=== PATIENT | female | born 1965 | race Caucasian/White ===

== ENCOUNTER 2019-10-24 13:41 | Emergency (ER) | payer MEDICAID ==
[~2019-10-24] VITALS: Ht 165.1 cm; Wt 75.0 kg
[2019-10-24 14:56] LABS: EOSINOPHILS % (AUTO) 0 % (1.0-6.0); HEMATOCRIT 34.8 % (36-46); HEMOGLOBIN 11.1 g/dL (12.0-16.0); LYMPHOCYTES # (AUTO) 0.8 K/uL (1.0-4.8); LYMPHOCYTES % (AUTO) 13.8 % (22.0-44.0); MEAN CORPUSCULAR HEMOGLOBIN 26.7 pg (26.0-34.0); MEAN CORPUSCULAR HGB CONC 31.9 G/dL (31.0-37.0); MEAN CORPUSCULAR VOLUME 84 fL (80-100); MONOCYTES # (AUTO) 0.5 K/uL (0.1-1.0); MONOCYTES % (AUTO) 9.2 % (2.0-9.0); NEUTROPHILS # (AUTO) 4.5 K/uL (1.8-7.7); PLATELET COUNT (AUTO) 300 K/uL (150-450); RED BLOOD CELL COUNT(AUTO) 4.15 MIL/uL (4.00-5.20); RED CELL DISTRIBUTION WIDTH 18.2 % (11.5-14.5)
[2019-10-24 15:19] LABS: CALCIUM, TOTAL 8.1 mg/dL (8.8-10.5); POTASSIUM 4.6 mmol/L (3.5-5.1)
[2019-10-24 15:34] LABS: BILIRUBIN,TOTAL 0.3 mg/dL (0.1-1.0); CREATININE 1.29 mg/dL (0.60-1.30); TOTAL PROTEIN, SERUM 6.9 g/dL (6.4-8.2)
[2019-10-24] MEDS ORDERED: INSULIN REGULAR, HUMAN 100 UNITS/ML IVP ONE (16:00)
[2019-10-24] MEDS ORDERED: BUMETANIDE 0.25 MG/ML 4 ML VIAL IVP ONE (16:15)
[2019-10-24 16:29] LABS: GLUCOSE,POINT OF CARE 369 MG/DL (70-110)
[2019-10-24 17:28] VITALS: BP 137/91
[2019-10-24 18:46] LABS: GLUCOSE,POINT OF CARE 302 MG/DL (70-110)
== END 2019-10-24 17:53 | disposition home or self-care (01) ==
LOC: EDBD 13:53 → EMS 13:53
DX: E11.65 Type 2 diabetes mellitus with hyperglycemia (principal); I50.9 Heart failure, unspecified; R60.0 Localized edema
CPT/HCPCS: 36415; 71045; 80053; 82962; 83880; 84484; 85025; 93005; 96374; 96375; 99285; J1815; J3490

== ENCOUNTER 2020-03-05 10:11 | Inpatient (IN) | payer MEDICAID ==
[~2020-03-05] VITALS: Ht 170.2 cm; Wt 66.9 kg
[~2020-03-05 10:11] MED LIST: ATOR20TA86 PO; CARV6 PO; INSLAN SQ; METO2.5T4 PO
[2020-03-05] MEDS ORDERED: FUROSEMIDE 40 MG/4 ML VIAL IVP ONE (12:15)
[2020-03-05 12:23] LABS: BASOPHILS % (AUTO) 1.1 % (0.0-2.0); EOSINOPHILS % (AUTO) 1.9 % (1.0-6.0); HEMOGLOBIN 11.8 g/dL (12.0-16.0); LYMPHOCYTES % (AUTO) 18.2 % (22.0-44.0); MEAN CORPUSCULAR HEMOGLOBIN 28.3 pg (26.0-34.0); MEAN CORPUSCULAR HGB CONC 31.7 G/dL (31.0-37.0); MEAN CORPUSCULAR VOLUME 89 fL (80-100); MONOCYTES # (AUTO) 0.7 K/uL (0.1-1.0); MONOCYTES % (AUTO) 11.9 % (2.0-9.0); NEUTROPHILS # (AUTO) 3.7 K/uL (1.8-7.7); NEUTROPHILS % (AUTO) 66.9 % (40.0-70.0); PLATELET COUNT (AUTO) 348 K/uL (150-450); RED BLOOD CELL COUNT(AUTO) 4.15 MIL/uL (4.00-5.20); RED CELL DISTRIBUTION WIDTH 17.9 % (11.5-14.5)
[2020-03-05 12:44] LABS: ANION GAP 9 mmol/L (8-16); CALCIUM, TOTAL 8.6 mg/dL (8.8-10.5); CARBON DIOXIDE 22 mmol/L (22-29); CHLORIDE 105 mmol/L (98-107); GLOMERULAR FILTR. RATE CALC 36 mL/min (>60); GLUCOSE,RANDOM 315 mg/dL (70-110); POTASSIUM 4.4 mmol/L (3.5-5.1); SODIUM SERUM 136 mmol/L (136-145); UREA NITROGEN, BLOOD 26 mg/dL (7-18)
[2020-03-05] MEDS ORDERED: PIPERACILLIN/TAZO 3.375 GM/D5W 50 ML IV ONE (12:45)
[2020-03-05 12:49] LABS: ALANINE AMINOTRANSFERASE 12 U/L (12-78); ALBUMIN 2.3 g/dL (3.4-5.0); ALKALINE PHOSPHATASE 132 U/L (46-116); ASPARTATE AMINOTRANSFERASE 28 U/L (15-37); B-TYPE NATRIURETIC PEPTIDE 2080 pg/mL (0-100); BILIRUBIN,TOTAL 0.7 mg/dL (0.1-1.0); TOTAL PROTEIN, SERUM 7.2 g/dL (6.4-8.2)
[2020-03-05] MEDS ORDERED: DEXTROSE 50%-WATER 25 GM/50 ML SYRINGE IVP PRN (13:15)
[2020-03-05] MEDS ORDERED: HydrALAZINE HCL 20 MG/ML VIAL IVP PRN (13:15)
[2020-03-05] MEDS ORDERED: 0.9% SODIUM CHLORIDE 10 ML SYRINGE IVP PRN (13:30)
[2020-03-05] MEDS ORDERED: MAGNESIUM HYDROXIDE SUSPENSION 30 ML UDCUP PO PRN (13:30)
[2020-03-05] MEDS ORDERED: ACETAMINOPHEN 325 MG TABLET PO PRN (13:30)
[2020-03-05] MEDS ORDERED: BISACODYL 10 MG RECTAL RECTAL SUPPOSITORY PR PRN (13:30)
[2020-03-05] MEDS ORDERED: ALBUTEROL SULFATE 2.5 MG/0.5 ML NEB SOLUTION NEB PRN (13:30)
[2020-03-05] MEDS ORDERED: IPRATROPIUM BROMIDE 0.5 MG/2.5 ML NEB SOLUTION NEB PRN (13:30)
[2020-03-05] MEDS ORDERED: DOCUSATE SODIUM 100 MG CAPSULE PO PRN (13:30)
[2020-03-05] MEDS ORDERED: ONDANSETRON HCL 4 MG/2 ML VIAL IVP PRN (13:30)
[2020-03-05] MEDS ORDERED: VANCOMYCIN HCL 1 GM/D5% WATER 200 ML IV ONE (14:00)
[2020-03-05] MEDS: LACTOBACILLUS ACIDOPHILUS/BULGARICUS TABLET PO SCH ×2 (15:05→21:00)
[2020-03-05] MEDS: PANTOPRAZOLE SODIUM 40 MG DR TABLET PO SCH (15:05)
[2020-03-05 17:35] LABS: APPEARANCE,URINE CLEAR (CLEAR); BILIRUBIN,URINE NEGATIVE (NEGATIVE); GLUCOSE, URINE (UA) 250 mg/dL (NEGATIVE); KETONES,URINE NEGATIVE (NEGATIVE); LEUKOCYTE ESTERASE ,URINE NEGATIVE (NEGATIVE); NITRATE,URINE NEGATIVE (NEGATIVE); OCCULT BLOOD,URINE SMALL (NEGATIVE); PROTEIN,URINE SEE CONFIRM (NEGATIVE); UROBILINOGEN,URINE 0.2 mg/dL (<=1.0)
[2020-03-05 17:40] LABS: SULFOSALICYLIC ACID,URINE 4+ (Negative)
[2020-03-05 17:41] LABS: BACTERIA,URINE None Seen /HPF (None Seen); RBC,URINE 0-2 /HPF (0-2); SQUAMOUS EPITHELIAL CELL,UR Few /LPF (None Seen); WBC,URINE 0-2 /HPF (0-5); YEAST,URINE Rare /HPF (None Seen)
[2020-03-05] MEDS: CefTRIAXone 1 GM/DEXTROSE 50 ML IV SCH (18:09)
[2020-03-05] MEDS: INSULIN LISPRO 100 UNITS/ML SQ PRN ×2 (18:11→21:25)
[2020-03-05 20:45] VITALS: BP 146/110
[2020-03-05] MEDS: FUROSEMIDE 40 MG/4 ML VIAL IVP SCH (20:59)
[2020-03-05] MEDS: VANCOMYCIN HCL 750 MG in DEXTROSE 5%-WATER 250 ML IV SCH (20:59)
[2020-03-05] MEDS: HEPARIN SODIUM,PORCINE 5,000 UNITS/ML VIAL SQ SCH (21:00)
[2020-03-05] MEDS ORDERED: RIFAB150 PO (23:39)
[2020-03-05] MEDS ORDERED: PYRI-12 PO (23:40)
[2020-03-05] MEDS ORDERED: ISON100L PO (23:40)
[2020-03-05] MEDS ORDERED: ISON100 PO (23:44)
[2020-03-06] VITALS (7 sets, daily range): BP systolic 116–149; BP diastolic 68–94
[2020-03-06 03:44] LABS: GLUCOMETER DEV NAME(LOC) 5S.2B; GLUCOSE,POINT OF CARE 263 MG/DL (70-110)
[2020-03-06 06:55] LABS: EOSINOPHILS % (AUTO) 1.9 % (1.0-6.0); HEMATOCRIT 36.2 % (36-46); HEMOGLOBIN 11.5 g/dL (12.0-16.0); LYMPHOCYTES # (AUTO) 0.8 K/uL (1.0-4.8); LYMPHOCYTES % (AUTO) 13.6 % (22.0-44.0); MEAN CORPUSCULAR HEMOGLOBIN 28.3 pg (26.0-34.0); MEAN CORPUSCULAR HGB CONC 31.8 G/dL (31.0-37.0); MEAN CORPUSCULAR VOLUME 89 fL (80-100); MONOCYTES # (AUTO) 0.8 K/uL (0.1-1.0); MONOCYTES % (AUTO) 12.9 % (2.0-9.0); NEUTROPHILS # (AUTO) 4.1 K/uL (1.8-7.7); NEUTROPHILS % (AUTO) 70.6 % (40.0-70.0); PLATELET COUNT (AUTO) 339 K/uL (150-450); RED BLOOD CELL COUNT(AUTO) 4.07 MIL/uL (4.00-5.20); RED CELL DISTRIBUTION WIDTH 17.3 % (11.5-14.5)
[2020-03-06 07:20] LABS: HEMOGLOBIN A1C 8.8 % (3.8-5.6)
[2020-03-06 07:24] LABS: ALBUMIN 2.3 g/dL (3.4-5.0); BILIRUBIN,TOTAL 0.6 mg/dL (0.1-1.0); CHOL/HDL RATIO 3.4 (3.9-5.7); CREATININE 1.32 mg/dL (0.60-1.30); FREE T4 (FREE THYROXINE) 1.34 ng/dL (0.76-1.46); POTASSIUM 4.2 mmol/L (3.5-5.1); THYROID STIMULATING HORMONE 4.8 uIU/mL (0.36-3.74)
[2020-03-06 07:46] LABS: GLUCOMETER DEV NAME(LOC) 5S.2B; GLUCOSE,POINT OF CARE 65 MG/DL (70-110)
[2020-03-06] MEDS: VANCOMYCIN HCL 750 MG in DEXTROSE 5%-WATER 250 ML IV SCH ×3 (08:01→20:36)
[2020-03-06] MEDS: ASPIRIN 81 MG CHEWABLE TABLET PO SCH (08:01)
[2020-03-06] MEDS: RIFABUTIN 150 MG CAPSULE PO SCH (08:01)
[2020-03-06] MEDS: PANTOPRAZOLE SODIUM 40 MG DR TABLET PO SCH (08:02)
[2020-03-06] MEDS: FUROSEMIDE 40 MG/4 ML VIAL IVP SCH ×2 (08:02→20:36)
[2020-03-06] MEDS: HEPARIN SODIUM,PORCINE 5,000 UNITS/ML VIAL SQ SCH ×2 (08:02→20:36)
[2020-03-06] MEDS: PYRIDOXINE HCL 50 MG TABLET PO SCH (08:03)
[2020-03-06] MEDS: ISONIAZID 100 MG TABLET PO SCH (08:03)
[2020-03-06] MEDS: LACTOBACILLUS ACIDOPHILUS/BULGARICUS TABLET PO SCH ×2 (08:03→21:28)
[2020-03-06] MEDS ORDERED: FUROSEMIDE 20 MG/2 ML VIAL IVP SCH (09:00)
[2020-03-06] MEDS: INSULIN LISPRO 100 UNITS/ML SQ PRN ×3 (11:10→21:45)
[2020-03-06] MEDS: CefTRIAXone 1 GM/DEXTROSE 50 ML IV SCH (17:37)
[2020-03-06 18:44] LABS: GLUCOMETER DEV NAME(LOC) 5S.1; GLUCOSE,POINT OF CARE 167 MG/DL (70-110)
[2020-03-07 00:33] LABS: GLUCOMETER DEV NAME(LOC) 5S.2B; GLUCOSE,POINT OF CARE 250 MG/DL (70-110)
[2020-03-07 03:58] VITALS: BP 121/70
[2020-03-07 04:48] LABS: BASOPHILS % (AUTO) 1.3 % (0.0-2.0); EOSINOPHILS % (AUTO) 3.9 % (1.0-6.0); HEMATOCRIT 31.9 % (36-46); HEMOGLOBIN 10.5 g/dL (12.0-16.0); LYMPHOCYTES # (AUTO) 0.8 K/uL (1.0-4.8); LYMPHOCYTES % (AUTO) 17.8 % (22.0-44.0); MEAN CORPUSCULAR HEMOGLOBIN 28.9 pg (26.0-34.0); MEAN CORPUSCULAR HGB CONC 32.9 G/dL (31.0-37.0); MEAN CORPUSCULAR VOLUME 88 fL (80-100); MONOCYTES # (AUTO) 0.7 K/uL (0.1-1.0); MONOCYTES % (AUTO) 16.3 % (2.0-9.0); NEUTROPHILS # (AUTO) 2.7 K/uL (1.8-7.7); NEUTROPHILS % (AUTO) 60.7 % (40.0-70.0); PLATELET COUNT (AUTO) 330 K/uL (150-450); RED BLOOD CELL COUNT(AUTO) 3.63 MIL/uL (4.00-5.20); RED CELL DISTRIBUTION WIDTH 17.6 % (11.5-14.5)
[2020-03-07 05:54] LABS: CALCIUM, TOTAL 8.3 mg/dL (8.8-10.5); CREATININE 1.39 mg/dL (0.60-1.30); POTASSIUM 4.2 mmol/L (3.5-5.1); VANCOMYCIN,RANDOM 23.3 mcg/mL (25.0-50.0)
[2020-03-07] MEDS: LACTOBACILLUS ACIDOPHILUS/BULGARICUS TABLET PO SCH ×2 (07:37→20:30)
[2020-03-07] MEDS: VANCOMYCIN HCL 750 MG in DEXTROSE 5%-WATER 250 ML IV SCH ×2 (07:37→20:30)
[2020-03-07] MEDS: ISONIAZID 100 MG TABLET PO SCH (07:38)
[2020-03-07] MEDS: PYRIDOXINE HCL 50 MG TABLET PO SCH (07:38)
[2020-03-07] MEDS: PANTOPRAZOLE SODIUM 40 MG DR TABLET PO SCH (07:38)
[2020-03-07] MEDS: RIFABUTIN 150 MG CAPSULE PO SCH (07:38)
[2020-03-07] MEDS: HEPARIN SODIUM,PORCINE 5,000 UNITS/ML VIAL SQ SCH ×2 (07:39→20:30)
[2020-03-07] MEDS: FUROSEMIDE 40 MG/4 ML VIAL IVP SCH (07:39)
[2020-03-07] MEDS: ASPIRIN 81 MG CHEWABLE TABLET PO SCH (07:39)
[2020-03-07 07:53] VITALS: BP 140/73
[2020-03-07 08:46] LABS: GLUCOMETER DEV NAME(LOC) 5N.3; GLUCOSE,POINT OF CARE 71 MG/DL (70-110)
[2020-03-07 11:05] VITALS: BP 109/73
[2020-03-07] MEDS ORDERED: METOPROLOL SUCCINATE 25 MG ER TABLET PO ONE (11:15)
[2020-03-07 11:35] LABS: GLUCOMETER DEV NAME(LOC) 5S.2B; GLUCOSE,POINT OF CARE 110 MG/DL (70-110)
[2020-03-07] MEDS: LISINOPRIL 5 MG TABLET PO SCH (11:36)
[2020-03-07] MEDS: INSULIN LISPRO 100 UNITS/ML SQ PRN ×3 (11:54→20:31)
[2020-03-07 15:11] VITALS: BP 108/70
[2020-03-07] MEDS: CefTRIAXone 1 GM/DEXTROSE 50 ML IV SCH (17:51)
[2020-03-07 18:04] LABS: GLUCOMETER DEV NAME(LOC) 5N.1; GLUCOSE,POINT OF CARE 192 MG/DL (70-110)
[2020-03-07 20:10] VITALS: BP 96/62
[2020-03-07 20:24] LABS: GLUCOMETER DEV NAME(LOC) 5S.2B; GLUCOSE,POINT OF CARE 197 MG/DL (70-110)
[2020-03-07 20:36] LABS: GLUCOMETER DEV NAME(LOC) 5N.3; GLUCOSE,POINT OF CARE 281 MG/DL (70-110)
[2020-03-08 00:12] VITALS: BP 103/60
[2020-03-08 04:30] VITALS: BP 103/66
[2020-03-08 06:38] LABS: GLUCOMETER DEV NAME(LOC) 5N.3; GLUCOSE,POINT OF CARE 133 MG/DL (70-110)
[2020-03-08 07:13] LABS: CALCIUM, TOTAL 8.2 mg/dL (8.8-10.5); CREATININE 1.52 mg/dL (0.60-1.30); POTASSIUM 4.1 mmol/L (3.5-5.1)
[2020-03-08 07:55] VITALS: BP 114/72
[2020-03-08] MEDS: ISONIAZID 100 MG TABLET PO SCH (08:11)
[2020-03-08] MEDS: ASPIRIN 81 MG CHEWABLE TABLET PO SCH (08:11)
[2020-03-08] MEDS: RIFABUTIN 150 MG CAPSULE PO SCH (08:11)
[2020-03-08] MEDS: HEPARIN SODIUM,PORCINE 5,000 UNITS/ML VIAL SQ SCH ×2 (08:12→20:07)
[2020-03-08] MEDS: FUROSEMIDE 40 MG TABLET PO SCH (08:12)
[2020-03-08] MEDS: PYRIDOXINE HCL 50 MG TABLET PO SCH (08:12)
[2020-03-08] MEDS: LACTOBACILLUS ACIDOPHILUS/BULGARICUS TABLET PO SCH ×2 (08:12→20:07)
[2020-03-08] MEDS: LISINOPRIL 5 MG TABLET PO SCH (08:13)
[2020-03-08] MEDS: PANTOPRAZOLE SODIUM 40 MG DR TABLET PO SCH (08:13)
[2020-03-08] MEDS: VANCOMYCIN HCL 750 MG in DEXTROSE 5%-WATER 250 ML IV SCH ×2 (08:13→19:48)
[2020-03-08] MEDS: INSULIN LISPRO 100 UNITS/ML SQ PRN ×3 (11:32→20:08)
[2020-03-08 11:50] VITALS: BP 106/73
[2020-03-08 12:44] LABS: GLUCOMETER DEV NAME(LOC) 5N.3; GLUCOSE,POINT OF CARE 174 MG/DL (70-110)
[2020-03-08 15:43] VITALS: BP 109/71
[2020-03-08] MEDS: CefTRIAXone 1 GM/DEXTROSE 50 ML IV SCH (17:31)
[2020-03-08 19:25] VITALS: BP 113/67
[2020-03-08 21:56] LABS: GLUCOMETER DEV NAME(LOC) 5S.2B; GLUCOSE,POINT OF CARE 177 MG/DL (70-110)
[2020-03-09] VITALS: BP 106/63
[2020-03-09 00:40] LABS: GLUCOMETER DEV NAME(LOC) 5N.1; GLUCOSE,POINT OF CARE 211 MG/DL (70-110)
[2020-03-09 04:12] VITALS: BP 112/73
[2020-03-09 07:04] LABS: CALCIUM, TOTAL 8.3 mg/dL (8.8-10.5); CREATININE 1.42 mg/dL (0.60-1.30); POTASSIUM 4.3 mmol/L (3.5-5.1)
[2020-03-09 07:05] LABS: GLUCOMETER DEV NAME(LOC) 5S.2B; GLUCOSE,POINT OF CARE 114 MG/DL (70-110)
[2020-03-09] MEDS: FUROSEMIDE 40 MG TABLET PO SCH (07:53)
[2020-03-09] MEDS: ISONIAZID 100 MG TABLET PO SCH (07:53)
[2020-03-09] MEDS: HEPARIN SODIUM,PORCINE 5,000 UNITS/ML VIAL SQ SCH (07:53)
[2020-03-09] MEDS: RIFABUTIN 150 MG CAPSULE PO SCH (07:53)
[2020-03-09] MEDS: LISINOPRIL 5 MG TABLET PO SCH (07:54)
[2020-03-09] MEDS: LACTOBACILLUS ACIDOPHILUS/BULGARICUS TABLET PO SCH (07:54)
[2020-03-09] MEDS: VANCOMYCIN HCL 750 MG in DEXTROSE 5%-WATER 250 ML IV SCH (07:54)
[2020-03-09] MEDS: PYRIDOXINE HCL 50 MG TABLET PO SCH (07:54)
[2020-03-09] MEDS: PANTOPRAZOLE SODIUM 40 MG DR TABLET PO SCH (07:54)
[2020-03-09] MEDS: ASPIRIN 81 MG CHEWABLE TABLET PO SCH (07:54)
[2020-03-09 08:00] VITALS: BP 116/73
[2020-03-09 12:00] VITALS: BP 126/81
[2020-03-09] MEDS ORDERED: LISI-622 PO (12:38)
[2020-03-09] MEDS ORDERED: ASPI-728 PO (12:38)
[2020-03-09] MEDS ORDERED: CEPH-582 PO (12:38)
[2020-03-09] MEDS: INSULIN LISPRO 100 UNITS/ML SQ PRN (13:14)
[2020-03-09 16:22] VITALS: BP 116/65
[2020-03-09 20:01] LABS: GLUCOMETER DEV NAME(LOC) 5S.2B; GLUCOSE,POINT OF CARE 201 MG/DL (70-110)
== END 2020-03-09 16:50 | disposition home or self-care (01) | DRG 194 ==
LOC: EMS 10:14 → 5N 13:21 → 5S 03-08 17:15
PROVIDERS: ADMIT Internal Medicine; ATTEND Internal Medicine
PROC: 05HY33Z Insertion of Infusion Device into Upper Vein, Percutaneous Approach (ICD-10-PCS; principal; 2020-03-06)
PROC: B54NZZ3 Ultrasonography of Left Upper Extremity Veins, Intravascular (ICD-10-PCS; 2020-03-06)
DX: I13.0 Hypertensive heart and chronic kidney disease with heart failure and stage 1 through stage 4 chronic kidney disease, or unspecified chronic kidney disease (principal); I50.23 Acute on chronic systolic (congestive) heart failure; R06.03 Acute respiratory distress; L03.116 Cellulitis of left lower limb; N17.9 Acute kidney failure, unspecified; E11.22 Type 2 diabetes mellitus with diabetic chronic kidney disease; N18.9 Chronic kidney disease, unspecified; E11.65 Type 2 diabetes mellitus with hyperglycemia; E11.51 Type 2 diabetes mellitus with diabetic peripheral angiopathy without gangrene; I42.0 Dilated cardiomyopathy; M86.9 Osteomyelitis, unspecified; E11.69 Type 2 diabetes mellitus with other specified complication; Z20.828 Contact with and (suspected) exposure to other viral communicable diseases
CPT/HCPCS: 36245; 36569; 76937; 82948; 83036; 84145; 84439; 84443; 87070; 87205; 87426; 93005; 93306; 93925; 93970; 97110; 97116; 97162; 97530; J0696; J1644; J1815; J1940; J3370; J7060; 36415-L1; 36415-TC; 71045-TC; 80061-TC; 80202-TC

== ENCOUNTER 2020-04-09 18:16 | Inpatient (IN) | payer MEDICAID ==
[~2020-04-09] VITALS: Ht 152.4 cm; Wt 73.5 kg
[~2020-04-09 18:16] MED LIST changes: +ASPI-728 PO; +CEPH-582 PO; +FURO20 PO; +ISON100 PO; +LISI-622 PO; +METO2.5T2 PO; -METO2.5T4 PO; +PYRI-12 PO; +RIFAB150 PO
[2020-04-09] MEDS ORDERED: FUROSEMIDE 40 MG/4 ML VIAL IVP ONE (18:45)
[2020-04-09] MEDS ORDERED: NITROGLYCERIN 2% (1 GM=INCH) PACKET TP ONE (18:45)
[2020-04-09 19:00] LABS: BASOPHILS % (AUTO) 1.8 % (0.0-2.0); EOSINOPHILS % (AUTO) 1.3 % (1.0-6.0); HEMATOCRIT 40.2 % (36-46); HEMOGLOBIN 12.6 g/dL (12.0-16.0); LYMPHOCYTES % (AUTO) 22.8 % (22.0-44.0); MEAN CORPUSCULAR HEMOGLOBIN 26.1 pg (26.0-34.0); MEAN CORPUSCULAR HGB CONC 31.3 G/dL (31.0-37.0); MEAN CORPUSCULAR VOLUME 84 fL (80-100); MONOCYTES # (AUTO) 0.9 K/uL (0.1-1.0); MONOCYTES % (AUTO) 10.7 % (2.0-9.0); NEUTROPHILS # (AUTO) 5.6 K/uL (1.8-7.7); NEUTROPHILS % (AUTO) 63.4 % (40.0-70.0); PLATELET COUNT (AUTO) 415 K/uL (150-450); RED BLOOD CELL COUNT(AUTO) 4.82 MIL/uL (4.00-5.20); RED CELL DISTRIBUTION WIDTH 17.3 % (11.5-14.5)
[2020-04-09 19:14] LABS: INR 1.1 (0.9-1.1); PROTHROMBIN TIME 11.2 SEC (9.4-11.6)
[2020-04-09 19:18] LABS: CALCIUM, TOTAL 8.6 mg/dL (8.8-10.5); CREATININE 1.28 mg/dL (0.60-1.30); POTASSIUM 3.9 mmol/L (3.5-5.1)
[2020-04-09 19:43] LABS: ALBUMIN 2.4 g/dL (3.4-5.0); BILIRUBIN,TOTAL 0.9 mg/dL (0.1-1.0); TOTAL PROTEIN, SERUM 7.3 g/dL (6.4-8.2)
[2020-04-09 19:44] LABS: SITE, BLOOD GAS LFT RADIAL
[2020-04-09 19:45] LABS: ABG BASE EXCESS -2.2 mmol/L (-2.0-3.0); ABG HCO3 22.6 mmol/L (22.0-26.0); ABG PCO2 44 mmHg (35-45); ABG PH 7.344 (7.35-7.450); ABG TOTAL HEMOGLOBIN 12.4 G/dL (12.0-18.0); PO2, ARTERIAL BG 249.3 mmHg (84.0-92.0); SOURCE, BLOOD GAS ARTERIAL; TEMPERATURE, FAHRENHEIT, BG 97.8 FAHREN (96.0-98.6)
[2020-04-09 19:46] LABS: ABG A-A DIFF O2 420.5 mmHg (10-20.0); ABG CARBOXYHEMOGLOBIN 1.1 % (0.0-1.5); ABG METHEMOGLOBIN 0.3 % (0.0-1.5); ABG OXYGEN CONTENT 17.7 mL/dL (15.0-23.0); ABG OXYGEN SATURATION 99.6 % (95.0-98.0); ABG OXYHEMOGLOBIN 98.2 % (94.0-100.0); O2 DEVICE,BLOOD GAS NON REBREATHER (ROOM AIR)
[2020-04-09 19:57] LABS: COVID AG,FIA SOURCE NASOPHARYNGEAL
[2020-04-09] MEDS ORDERED: 0.9% SODIUM CHLORIDE 10 ML SYRINGE IVP PRN (20:30)
[2020-04-09] MEDS ORDERED: ONDANSETRON HCL 4 MG/2 ML VIAL IVP PRN (20:30)
[2020-04-09] MEDS ORDERED: ACETAMINOPHEN 325 MG TABLET PO PRN ×2 (20:30→20:45)
[2020-04-09] MEDS ORDERED: DEXTROSE 50%-WATER 25 GM/50 ML SYRINGE IVP PRN (20:45)
[2020-04-09] MEDS: ATORVASTATIN CALCIUM 20 MG TABLET PO SCH (21:39)
[2020-04-09] MEDS: DOCUSATE SODIUM 100 MG CAPSULE PO SCH (21:39)
[2020-04-09] MEDS: CARVEDILOL 6.25 MG TABLET PO SCH (21:39)
[2020-04-09 21:40] VITALS: BP 151/101
[2020-04-09] MEDS: INSULIN GLARGINE,HUM.REC.ANLOG 100 UNITS/ML SQ SCH (21:41)
[2020-04-09] MEDS: INSULIN LISPRO 100 UNITS/ML SQ PRN (21:42)
[2020-04-09 23:02] LABS: GLUCOMETER DEV NAME(LOC) 5S.2B; GLUCOSE,POINT OF CARE 360 MG/DL (70-110)
[2020-04-09] MEDS: HEPARIN SODIUM,PORCINE 5,000 UNITS/ML VIAL SQ SCH (23:43)
[2020-04-10 00:38] VITALS: BP_SYST 106; BP_SYST 136; BP_DIAS 60; BP_DIAS 84
[2020-04-10 04:20] VITALS: BP 107/62
[2020-04-10 06:50] LABS: BASOPHILS % (AUTO) 1.5 % (0.0-2.0); EOSINOPHILS % (AUTO) 0.9 % (1.0-6.0); HEMOGLOBIN 11.1 g/dL (12.0-16.0); LYMPHOCYTES # (AUTO) 0.5 K/uL (1.0-4.8); MEAN CORPUSCULAR HEMOGLOBIN 25.5 pg (26.0-34.0); MEAN CORPUSCULAR HGB CONC 30.9 G/dL (31.0-37.0); MEAN CORPUSCULAR VOLUME 83 fL (80-100); MONOCYTES # (AUTO) 0.7 K/uL (0.1-1.0); NEUTROPHILS # (AUTO) 5.4 K/uL (1.8-7.7); NEUTROPHILS % (AUTO) 80.6 % (40.0-70.0); PLATELET COUNT (AUTO) 344 K/uL (150-450); RED BLOOD CELL COUNT(AUTO) 4.36 MIL/uL (4.00-5.20); RED CELL DISTRIBUTION WIDTH 17.2 % (11.5-14.5)
[2020-04-10] MEDS ORDERED: PNEUMOCOCCAL VACCINE POLYVALENT 0.5 ML VIAL [PPSV23] IM ONE (07:00)
[2020-04-10] MEDS ORDERED: INFLUENZA VIRUS VACCINE QVS 2020-21 (6MO+)/PF 60 MCG/0.5 ML SYRINGE IM ONE (07:00)
[2020-04-10 07:02] VITALS: BP 112/73
[2020-04-10 07:42] LABS: ALBUMIN 1.9 g/dL (3.4-5.0); CALCIUM, TOTAL 8.4 mg/dL (8.8-10.5); CREATININE 1.28 mg/dL (0.60-1.30); POTASSIUM 4.2 mmol/L (3.5-5.1)
[2020-04-10] MEDS: CARVEDILOL 6.25 MG TABLET PO SCH ×2 (07:49→20:37)
[2020-04-10] MEDS: FAMOTIDINE 20 MG TABLET PO SCH (07:49)
[2020-04-10] MEDS: LISINOPRIL 10 MG TABLET PO SCH (07:49)
[2020-04-10] MEDS: RIFAMPIN 300 MG CAPSULE PO SCH (07:49)
[2020-04-10] MEDS: PYRIDOXINE HCL 50 MG TABLET PO SCH (07:49)
[2020-04-10] MEDS: ASPIRIN 81 MG CHEWABLE TABLET PO SCH (07:49)
[2020-04-10] MEDS: ISONIAZID 300 MG TABLET PO SCH (07:49)
[2020-04-10] MEDS: DOCUSATE SODIUM 100 MG CAPSULE PO SCH ×2 (07:50→20:37)
[2020-04-10] MEDS: HEPARIN SODIUM,PORCINE 5,000 UNITS/ML VIAL SQ SCH ×2 (07:50→15:22)
[2020-04-10] MEDS: FUROSEMIDE 40 MG/4 ML VIAL IVP SCH (07:50)
[2020-04-10 07:55] LABS: BILIRUBIN,TOTAL 0.6 mg/dL (0.1-1.0); TOTAL PROTEIN, SERUM 5.9 g/dL (6.4-8.2)
[2020-04-10 11:00] VITALS: BP 128/76
[2020-04-10 12:32] LABS: GLUCOMETER DEV NAME(LOC) 5N.3; GLUCOSE,POINT OF CARE 135 MG/DL (70-110)
[2020-04-10 15:31] VITALS: BP 114/74
[2020-04-10] MEDS: INSULIN LISPRO 100 UNITS/ML SQ PRN ×2 (17:22→20:41)
[2020-04-10 20:00] VITALS: BP 122/72
[2020-04-10] MEDS: ATORVASTATIN CALCIUM 20 MG TABLET PO SCH (20:37)
[2020-04-10] MEDS: INSULIN GLARGINE,HUM.REC.ANLOG 100 UNITS/ML SQ SCH (20:41)
[2020-04-11] VITALS (8 sets, daily range): BP systolic 109–144; BP diastolic 43–87
[2020-04-11] MEDS: HEPARIN SODIUM,PORCINE 5,000 UNITS/ML VIAL SQ SCH ×3 (00:50→17:10)
[2020-04-11 03:14] LABS: GLUCOMETER DEV NAME(LOC) 5S.1; GLUCOSE,POINT OF CARE 131 MG/DL (70-110)
[2020-04-11 03:14] LABS: GLUCOMETER DEV NAME(LOC) 5S.1; GLUCOSE,POINT OF CARE 183 MG/DL (70-110)
[2020-04-11 03:14] LABS: GLUCOMETER DEV NAME(LOC) 5S.2B; GLUCOSE,POINT OF CARE 170 MG/DL (70-110)
[2020-04-11 08:36] LABS: GLUCOMETER DEV NAME(LOC) 5S.2B; GLUCOSE,POINT OF CARE 71 MG/DL (70-110)
[2020-04-11] MEDS: FUROSEMIDE 40 MG/4 ML VIAL IVP SCH ×2 (08:53→20:19)
[2020-04-11] MEDS: LISINOPRIL 10 MG TABLET PO SCH (08:54)
[2020-04-11] MEDS: CARVEDILOL 6.25 MG TABLET PO SCH ×2 (08:54→20:20)
[2020-04-11] MEDS: PYRIDOXINE HCL 50 MG TABLET PO SCH (08:54)
[2020-04-11] MEDS: FAMOTIDINE 20 MG TABLET PO SCH (08:54)
[2020-04-11] MEDS: DOCUSATE SODIUM 100 MG CAPSULE PO SCH ×2 (08:54→20:21)
[2020-04-11] MEDS: ASPIRIN 81 MG CHEWABLE TABLET PO SCH (08:54)
[2020-04-11] MEDS: ISONIAZID 300 MG TABLET PO SCH (08:54)
[2020-04-11] MEDS: RIFAMPIN 300 MG CAPSULE PO SCH (08:55)
[2020-04-11] MEDS: INSULIN LISPRO 100 UNITS/ML SQ PRN ×3 (11:21→20:25)
[2020-04-11 12:23] LABS: GLUCOMETER DEV NAME(LOC) 5S.1; GLUCOSE,POINT OF CARE 128 MG/DL (70-110)
[2020-04-11 17:16] LABS: GLUCOMETER DEV NAME(LOC) 5S.2B; GLUCOSE,POINT OF CARE 157 MG/DL (70-110)
[2020-04-11] MEDS: ATORVASTATIN CALCIUM 20 MG TABLET PO SCH (20:20)
[2020-04-11] MEDS: INSULIN GLARGINE,HUM.REC.ANLOG 100 UNITS/ML SQ SCH (20:24)
[2020-04-12] MEDS: HEPARIN SODIUM,PORCINE 5,000 UNITS/ML VIAL SQ SCH ×4 (00:21→23:53)
[2020-04-12 00:52] LABS: GLUCOMETER DEV NAME(LOC) 5S.2B; GLUCOSE,POINT OF CARE 171 MG/DL (70-110)
[2020-04-12 04:00] VITALS: BP 113/73
[2020-04-12 06:13] LABS: BASOPHILS % (AUTO) 1.7 % (0.0-2.0); EOSINOPHILS % (AUTO) 4.8 % (1.0-6.0); HEMATOCRIT 31.6 % (36-46); HEMOGLOBIN 10.3 g/dL (12.0-16.0); LYMPHOCYTES # (AUTO) 0.6 K/uL (1.0-4.8); LYMPHOCYTES % (AUTO) 10.3 % (22.0-44.0); MEAN CORPUSCULAR HEMOGLOBIN 26.7 pg (26.0-34.0); MEAN CORPUSCULAR HGB CONC 32.6 G/dL (31.0-37.0); MEAN CORPUSCULAR VOLUME 82 fL (80-100); MONOCYTES # (AUTO) 0.9 K/uL (0.1-1.0); MONOCYTES % (AUTO) 15.1 % (2.0-9.0); NEUTROPHILS # (AUTO) 3.9 K/uL (1.8-7.7); NEUTROPHILS % (AUTO) 68.1 % (40.0-70.0); PLATELET COUNT (AUTO) 303 K/uL (150-450); RED BLOOD CELL COUNT(AUTO) 3.86 MIL/uL (4.00-5.20); RED CELL DISTRIBUTION WIDTH 16.7 % (11.5-14.5)
[2020-04-12 06:32] LABS: CALCIUM, TOTAL 8.4 mg/dL (8.8-10.5); CREATININE 1.44 mg/dL (0.60-1.30); POTASSIUM 4.4 mmol/L (3.5-5.1)
[2020-04-12 06:41] LABS: GLUCOMETER DEV NAME(LOC) 5S.1; GLUCOSE,POINT OF CARE 67 MG/DL (70-110)
[2020-04-12 07:50] VITALS: BP 129/90
[2020-04-12 08:01] LABS: GLUCOMETER DEV NAME(LOC) 5S.1; GLUCOSE,POINT OF CARE 95 MG/DL (70-110)
[2020-04-12] MEDS: CARVEDILOL 6.25 MG TABLET PO SCH ×2 (08:21→20:34)
[2020-04-12] MEDS: LISINOPRIL 10 MG TABLET PO SCH (08:21)
[2020-04-12] MEDS: DOCUSATE SODIUM 100 MG CAPSULE PO SCH ×3 (08:21→20:45)
[2020-04-12] MEDS: RIFAMPIN 300 MG CAPSULE PO SCH (08:21)
[2020-04-12] MEDS: PYRIDOXINE HCL 50 MG TABLET PO SCH (08:21)
[2020-04-12] MEDS: ISONIAZID 300 MG TABLET PO SCH (08:21)
[2020-04-12] MEDS: FAMOTIDINE 20 MG TABLET PO SCH (08:21)
[2020-04-12] MEDS: ASPIRIN 81 MG CHEWABLE TABLET PO SCH (08:21)
[2020-04-12] MEDS: FUROSEMIDE 40 MG/4 ML VIAL IVP SCH ×2 (08:25→20:35)
[2020-04-12 11:38] VITALS: BP 122/95
[2020-04-12 12:32] LABS: GLUCOMETER DEV NAME(LOC) 5S.1; GLUCOSE,POINT OF CARE 124 MG/DL (70-110)
[2020-04-12 15:35] VITALS: BP 113/66
[2020-04-12] MEDS ORDERED: FUROSEMIDE 40 MG/4 ML VIAL IVP ONE (15:45)
[2020-04-12 17:55] LABS: GLUCOMETER DEV NAME(LOC) 5S.2B; GLUCOSE,POINT OF CARE 152 MG/DL (70-110)
[2020-04-12 19:35] VITALS: BP 113/73
[2020-04-12] MEDS: ATORVASTATIN CALCIUM 20 MG TABLET PO SCH (20:34)
[2020-04-12] MEDS: INSULIN GLARGINE,HUM.REC.ANLOG 100 UNITS/ML SQ SCH (20:39)
[2020-04-12 22:19] LABS: GLUCOMETER DEV NAME(LOC) 5S.2B; GLUCOSE,POINT OF CARE 206 MG/DL (70-110)
[2020-04-13 00:28] VITALS: BP 111/72
[2020-04-13 04:57] VITALS: BP 108/59
[2020-04-13 06:43] LABS: GLUCOMETER DEV NAME(LOC) 5S.2B; GLUCOSE,POINT OF CARE 133 MG/DL (70-110)
[2020-04-13 07:06] VITALS: BP 113/78
[2020-04-13] MEDS: FUROSEMIDE 40 MG/4 ML VIAL IVP SCH (08:55)
[2020-04-13] MEDS: ASPIRIN 81 MG CHEWABLE TABLET PO SCH (08:55)
[2020-04-13] MEDS: HEPARIN SODIUM,PORCINE 5,000 UNITS/ML VIAL SQ SCH (08:55)
[2020-04-13] MEDS: LISINOPRIL 10 MG TABLET PO SCH (08:55)
[2020-04-13] MEDS: PYRIDOXINE HCL 50 MG TABLET PO SCH (08:56)
[2020-04-13] MEDS: DOCUSATE SODIUM 100 MG CAPSULE PO SCH ×3 (08:56→09:12)
[2020-04-13] MEDS: ISONIAZID 300 MG TABLET PO SCH (08:56)
[2020-04-13] MEDS: RIFAMPIN 300 MG CAPSULE PO SCH (08:56)
[2020-04-13] MEDS: FAMOTIDINE 20 MG TABLET PO SCH (08:56)
[2020-04-13] MEDS: CARVEDILOL 6.25 MG TABLET PO SCH (08:58)
[2020-04-13 11:47] VITALS: BP 122/91
[2020-04-13] MEDS: INSULIN LISPRO 100 UNITS/ML SQ PRN (13:54)
[2020-04-13 17:32] LABS: GLUCOMETER DEV NAME(LOC) 5S.1; GLUCOSE,POINT OF CARE 228 MG/DL (70-110)
== END 2020-04-13 16:10 | disposition home or self-care (01) | DRG 194 ==
LOC: EMS 18:17 → 5S 20:36
PROVIDERS: ADMIT Internal Medicine; ATTEND Internal Medicine
DX: I13.0 Hypertensive heart and chronic kidney disease with heart failure and stage 1 through stage 4 chronic kidney disease, or unspecified chronic kidney disease (principal); E11.65 Type 2 diabetes mellitus with hyperglycemia; Z91.19 Patient's noncompliance with other medical treatment and regimen; I34.0 Nonrheumatic mitral (valve) insufficiency; E11.51 Type 2 diabetes mellitus with diabetic peripheral angiopathy without gangrene; E44.0 Moderate protein-calorie malnutrition; Z68.31 Body mass index [BMI] 31.0-31.9, adult; N18.9 Chronic kidney disease, unspecified; E11.22 Type 2 diabetes mellitus with diabetic chronic kidney disease; I50.23 Acute on chronic systolic (congestive) heart failure; I42.8 Other cardiomyopathies; E78.5 Hyperlipidemia, unspecified; E87.70 Fluid overload, unspecified; A15.9 Respiratory tuberculosis unspecified; Z79.4 Long term (current) use of insulin; Z20.828 Contact with and (suspected) exposure to other viral communicable diseases
CPT/HCPCS: 82805; 87081; 87426; 90686; 90732; 93005; 99291; J1644; J1815; J1940; 36415-L1; 36415-TC; 71045-TC

== ENCOUNTER 2020-11-16 12:56 | Inpatient (IN) | payer MEDICAID ==
[~2020-11-16] VITALS: Ht 167.6 cm; Wt 53.0 kg
[~2020-11-16 12:56] MED LIST changes: +ASPI-1450 PO; -ASPI-728 PO; -CEPH-582 PO; -LISI-622 PO; +LISI-809 PO; -METO2.5T2 PO
[2020-11-16 13:28] LABS: GLUCOSE,POINT OF CARE 364 MG/DL (70-110)
[2020-11-16 14:18] LABS: BASOPHILS % (AUTO) 0.7 % (0.0-2.0); EOSINOPHILS % (AUTO) 2.1 % (1.0-6.0); HEMATOCRIT 42.5 % (36-46); HEMOGLOBIN 13.9 g/dL (12.0-16.0); LYMPHOCYTES % (AUTO) 15.7 % (22.0-44.0); MEAN CORPUSCULAR HEMOGLOBIN 28.6 pg (26.0-34.0); MEAN CORPUSCULAR HGB CONC 32.6 G/dL (31.0-37.0); MEAN CORPUSCULAR VOLUME 88 fL (80-100); MONOCYTES # (AUTO) 0.7 K/uL (0.1-1.0); MONOCYTES % (AUTO) 11.5 % (2.0-9.0); NEUTROPHILS # (AUTO) 4.3 K/uL (1.8-7.7); PLATELET COUNT (AUTO) 252 K/uL (150-450); RED BLOOD CELL COUNT(AUTO) 4.84 MIL/uL (4.00-5.20); RED CELL DISTRIBUTION WIDTH 15.9 % (11.5-14.5)
[2020-11-16 14:28] LABS: CREATININE 1.55 mg/dL (0.60-1.30); POTASSIUM 4.8 mmol/L (3.5-5.1)
[2020-11-16 14:29] LABS: CALCIUM, TOTAL 8.7 mg/dL (8.8-10.5)
[2020-11-16 14:33] LABS: ALBUMIN 2.4 g/dL (3.4-5.0); BILIRUBIN,TOTAL 0.9 mg/dL (0.1-1.0); TOTAL PROTEIN, SERUM 7.1 g/dL (6.4-8.2)
[2020-11-16 15:13] LABS: COVID AG,FIA SOURCE NASOPHARYNGEAL
[2020-11-16] MEDS ORDERED: ACETAMINOPHEN 325 MG TABLET PO PRN ×2 (15:45→16:00)
[2020-11-16] MEDS ORDERED: 0.9% SODIUM CHLORIDE 10 ML SYRINGE IVP PRN (15:45)
[2020-11-16] MEDS ORDERED: ONDANSETRON HCL 4 MG/2 ML VIAL IVP PRN ×2 (15:45→16:00)
[2020-11-16] MEDS ORDERED: MAGNESIUM HYDROXIDE SUSPENSION 30 ML UDCUP PO PRN (16:00)
[2020-11-16] MEDS ORDERED: HYDROCODONE/ACETAMINOPHEN 5-325 MG TABLET PO PRN (16:00)
[2020-11-16] MEDS ORDERED: MORPHINE SULFATE 2 MG/ML SYRINGE IVP PRN (16:00)
[2020-11-16] MEDS ORDERED: BISACODYL 10 MG RECTAL RECTAL SUPPOSITORY PR PRN (16:00)
[2020-11-16] MEDS ORDERED: ZOLPIDEM TARTRATE 5 MG TABLET PO PRN (16:00)
[2020-11-16 18:00] VITALS: BP 127/84
[2020-11-16 20:10] VITALS: BP 124/76
[2020-11-16] MEDS: CARVEDILOL 6.25 MG TABLET PO SCH (20:39)
[2020-11-16] MEDS: FUROSEMIDE 20 MG TABLET PO SCH (20:40)
[2020-11-16] MEDS: HEPARIN SODIUM,PORCINE 5,000 UNITS/ML VIAL SQ SCH ×2 (20:40→23:53)
[2020-11-16] MEDS: DOCUSATE SODIUM 100 MG CAPSULE PO SCH (20:49)
[2020-11-16] MEDS: ATORVASTATIN CALCIUM 20 MG TABLET PO SCH (21:39)
[2020-11-16] MEDS: INSULIN GLARGINE,HUM.REC.ANLOG 100 UNITS/ML SQ SCH (21:40)
[2020-11-16] MEDS: INSULIN LISPRO 100 UNITS/ML SQ PRN (21:40)
[2020-11-16] MEDS ORDERED: DEXTROSE 50%-WATER 25 GM/50 ML SYRINGE IVP PRN (21:45)
[2020-11-16 22:44] LABS: GLUCOMETER DEV NAME(LOC) 6S.1; GLUCOSE,POINT OF CARE 211 MG/DL (70-110)
[2020-11-16 23:40] VITALS: BP 104/67
[2020-11-17 04:42] VITALS: BP 102/69
[2020-11-17 06:28] LABS: GLUCOMETER DEV NAME(LOC) 6N.1; GLUCOSE,POINT OF CARE 117 MG/DL (70-110)
[2020-11-17 07:30] VITALS: BP 113/67
[2020-11-17] MEDS: DOCUSATE SODIUM 100 MG CAPSULE PO SCH ×2 (08:40→20:31)
[2020-11-17] MEDS: LISINOPRIL 5 MG TABLET PO SCH (08:42)
[2020-11-17] MEDS: ISONIAZID 300 MG TABLET PO SCH (08:42)
[2020-11-17] MEDS: RIFABUTIN 150 MG CAPSULE PO SCH (08:42)
[2020-11-17] MEDS: CARVEDILOL 6.25 MG TABLET PO SCH ×2 (08:42→20:31)
[2020-11-17] MEDS: ASPIRIN 81 MG CHEWABLE TABLET PO SCH (08:42)
[2020-11-17] MEDS: FUROSEMIDE 20 MG TABLET PO SCH ×2 (08:42→20:30)
[2020-11-17] MEDS: PANTOPRAZOLE SODIUM 40 MG DR TABLET PO SCH (08:42)
[2020-11-17] MEDS: PYRIDOXINE HCL 50 MG TABLET PO SCH (08:42)
[2020-11-17] MEDS: HEPARIN SODIUM,PORCINE 5,000 UNITS/ML VIAL SQ SCH ×2 (08:43→16:17)
[2020-11-17] MEDS: INSULIN LISPRO 100 UNITS/ML SQ PRN ×3 (11:26→20:50)
[2020-11-17 15:30] VITALS: BP 105/68
[2020-11-17 19:53] LABS: GLUCOMETER DEV NAME(LOC) 6N.1; GLUCOSE,POINT OF CARE 261 MG/DL (70-110)
[2020-11-17 19:53] LABS: GLUCOMETER DEV NAME(LOC) 6N.1; GLUCOSE,POINT OF CARE 236 MG/DL (70-110)
[2020-11-17 20:05] VITALS: BP 111/70
[2020-11-17] MEDS: ATORVASTATIN CALCIUM 20 MG TABLET PO SCH (20:31)
[2020-11-17] MEDS ORDERED: GADOTERATE MEGLUMINE 10 MMOL/20 ML VIAL IVP ONE (20:39)
[2020-11-17] MEDS: INSULIN GLARGINE,HUM.REC.ANLOG 100 UNITS/ML SQ SCH (20:53)
[2020-11-17 21:29] LABS: GLUCOMETER DEV NAME(LOC) 6S.1; GLUCOSE,POINT OF CARE 330 MG/DL (70-110)
[2020-11-17 23:10] VITALS: BP 99/67
[2020-11-18] MEDS: HEPARIN SODIUM,PORCINE 5,000 UNITS/ML VIAL SQ SCH ×4 (00:43→23:53)
[2020-11-18 03:30] VITALS: BP 95/60
[2020-11-18 05:44] LABS: GLUCOMETER DEV NAME(LOC) 6S.1; GLUCOSE,POINT OF CARE 108 MG/DL (70-110)
[2020-11-18] MEDS: INSULIN LISPRO 100 UNITS/ML SQ PRN ×4 (05:49→20:24)
[2020-11-18 07:58] VITALS: BP 94/60
[2020-11-18] MEDS: PANTOPRAZOLE SODIUM 40 MG DR TABLET PO SCH (08:03)
[2020-11-18] MEDS: ISONIAZID 300 MG TABLET PO SCH (08:03)
[2020-11-18] MEDS: ASPIRIN 81 MG CHEWABLE TABLET PO SCH (08:03)
[2020-11-18] MEDS: RIFABUTIN 150 MG CAPSULE PO SCH (08:03)
[2020-11-18] MEDS: DOCUSATE SODIUM 100 MG CAPSULE PO SCH ×2 (08:03→19:42)
[2020-11-18] MEDS: PYRIDOXINE HCL 50 MG TABLET PO SCH (08:03)
[2020-11-18] MEDS: CARVEDILOL 6.25 MG TABLET PO SCH ×2 (09:00→19:42)
[2020-11-18] MEDS: LISINOPRIL 5 MG TABLET PO SCH (09:00)
[2020-11-18] MEDS: FUROSEMIDE 20 MG TABLET PO SCH ×2 (09:00→19:42)
[2020-11-18 11:23] VITALS: BP 101/68
[2020-11-18 12:42] LABS: GLUCOMETER DEV NAME(LOC) 6N.1; GLUCOSE,POINT OF CARE 210 MG/DL (70-110)
[2020-11-18 15:37] VITALS: BP 108/70
[2020-11-18 17:36] LABS: GLUCOMETER DEV NAME(LOC) 6N.1; GLUCOSE,POINT OF CARE 236 MG/DL (70-110)
[2020-11-18 19:40] VITALS: BP 107/64
[2020-11-18] MEDS: ATORVASTATIN CALCIUM 20 MG TABLET PO SCH (20:23)
[2020-11-18] MEDS: INSULIN GLARGINE,HUM.REC.ANLOG 100 UNITS/ML SQ SCH (20:24)
[2020-11-18 23:12] LABS: GLUCOMETER DEV NAME(LOC) 6S.1; GLUCOSE,POINT OF CARE 232 MG/DL (70-110)
[2020-11-18 23:58] VITALS: BP 94/56
[2020-11-19 05:02] VITALS: BP 131/77
[2020-11-19 07:28] LABS: GLUCOMETER DEV NAME(LOC) 6S.1; GLUCOSE,POINT OF CARE 107 MG/DL (70-110)
[2020-11-19] MEDS: PYRIDOXINE HCL 50 MG TABLET PO SCH (08:10)
[2020-11-19] MEDS: LISINOPRIL 5 MG TABLET PO SCH (08:10)
[2020-11-19] MEDS: FUROSEMIDE 20 MG TABLET PO SCH ×2 (08:10→20:11)
[2020-11-19] MEDS: CARVEDILOL 6.25 MG TABLET PO SCH ×2 (08:10→20:11)
[2020-11-19] MEDS: ISONIAZID 300 MG TABLET PO SCH (08:10)
[2020-11-19] MEDS: RIFABUTIN 150 MG CAPSULE PO SCH (08:10)
[2020-11-19] MEDS: HEPARIN SODIUM,PORCINE 5,000 UNITS/ML VIAL SQ SCH ×3 (08:10→23:47)
[2020-11-19] MEDS: ASPIRIN 81 MG CHEWABLE TABLET PO SCH (08:11)
[2020-11-19] MEDS: PANTOPRAZOLE SODIUM 40 MG DR TABLET PO SCH (08:11)
[2020-11-19] MEDS: DOCUSATE SODIUM 100 MG CAPSULE PO SCH ×2 (08:11→20:11)
[2020-11-19] MEDS ORDERED: GADOTERATE MEGLUMINE 10 MMOL/20 ML VIAL IVP ONE (08:13)
[2020-11-19] MEDS: INSULIN LISPRO 100 UNITS/ML SQ PRN ×3 (11:51→20:22)
[2020-11-19 14:38] LABS: GLUCOMETER DEV NAME(LOC) 6N.1; GLUCOSE,POINT OF CARE 191 MG/DL (70-110)
[2020-11-19 16:04] VITALS: BP 107/67
[2020-11-19 19:05] LABS: GLUCOMETER DEV NAME(LOC) 6N.1; GLUCOSE,POINT OF CARE 269 MG/DL (70-110)
[2020-11-19 20:12] VITALS: BP 108/74
[2020-11-19] MEDS: ATORVASTATIN CALCIUM 20 MG TABLET PO SCH (20:13)
[2020-11-19] MEDS: INSULIN GLARGINE,HUM.REC.ANLOG 100 UNITS/ML SQ SCH (20:22)
[2020-11-19 22:28] LABS: GLUCOMETER DEV NAME(LOC) 6S.1; GLUCOSE,POINT OF CARE 279 MG/DL (70-110)
[2020-11-19 23:07] VITALS: BP 97/62
[2020-11-20 04:20] VITALS: BP 105/66
[2020-11-20] MEDS: INSULIN LISPRO 100 UNITS/ML SQ PRN ×2 (05:53→11:57)
[2020-11-20 07:11] LABS: GLUCOMETER DEV NAME(LOC) 6S.1; GLUCOSE,POINT OF CARE 150 MG/DL (70-110)
[2020-11-20] MEDS: HEPARIN SODIUM,PORCINE 5,000 UNITS/ML VIAL SQ SCH (08:16)
[2020-11-20] MEDS: ISONIAZID 300 MG TABLET PO SCH (08:17)
[2020-11-20] MEDS: FUROSEMIDE 20 MG TABLET PO SCH (08:17)
[2020-11-20] MEDS: CARVEDILOL 6.25 MG TABLET PO SCH (08:17)
[2020-11-20] MEDS: PANTOPRAZOLE SODIUM 40 MG DR TABLET PO SCH (08:17)
[2020-11-20] MEDS: PYRIDOXINE HCL 50 MG TABLET PO SCH (08:17)
[2020-11-20] MEDS: DOCUSATE SODIUM 100 MG CAPSULE PO SCH (08:17)
[2020-11-20] MEDS: ASPIRIN 81 MG CHEWABLE TABLET PO SCH (08:17)
[2020-11-20] MEDS: RIFABUTIN 150 MG CAPSULE PO SCH (08:18)
[2020-11-20 08:30] VITALS: BP 113/67
[2020-11-20] MEDS: LISINOPRIL 5 MG TABLET PO SCH (08:30)
[2020-11-20] MEDS ORDERED: CLIN300C3 PO (13:14)
[2020-11-20] MEDS ORDERED: CEPH500C3 PO (13:14)
[2020-11-20] MEDS ORDERED: SODIUM CHLORIDE 0.9% IRRIG BTL 1,000 ML IRRIG ONE (16:38)
[2020-11-21 02:30] LABS: GLUCOMETER DEV NAME(LOC) 6N.1; GLUCOSE,POINT OF CARE 149 MG/DL (70-110)
== END 2020-11-20 16:40 | disposition home or self-care (01) | DRG 380 ==
LOC: EMS 12:58 → 6N 16:00
PROVIDERS: ADMIT Internal Medicine; ATTEND Internal Medicine
DX: E11.621 Type 2 diabetes mellitus with foot ulcer (principal); L97.519 Non-pressure chronic ulcer of other part of right foot with unspecified severity; E11.40 Type 2 diabetes mellitus with diabetic neuropathy, unspecified; E11.22 Type 2 diabetes mellitus with diabetic chronic kidney disease; E44.0 Moderate protein-calorie malnutrition; I13.0 Hypertensive heart and chronic kidney disease with heart failure and stage 1 through stage 4 chronic kidney disease, or unspecified chronic kidney disease; E78.5 Hyperlipidemia, unspecified; N18.9 Chronic kidney disease, unspecified; E78.00 Pure hypercholesterolemia, unspecified; E11.65 Type 2 diabetes mellitus with hyperglycemia; I50.9 Heart failure, unspecified; Z20.822 Contact with and (suspected) exposure to COVID-19; Z91.14 Patient's other noncompliance with medication regimen; Z68.1 Body mass index [BMI] 19.9 or less, adult; Z79.4 Long term (current) use of insulin; Z79.82 Long term (current) use of aspirin; Z79.899 Other long term (current) drug therapy
CPT/HCPCS: 73720; 80053; 82962; 85025; 87040; 87081; 99285; A9575; J1644; J1815